=== PATIENT | female | born 1980 | race Two or more races ===

== ENCOUNTER 2019-05-17 07:54 | Inpatient (IN) | payer OTHER ==
[~2019-05-17] VITALS: Ht 162.6 cm; Wt 80.0 kg
[2019-05-17] MEDS ORDERED: OXYTOCIN 30U/ 0.9% NaCL 500ML 500 ML IV PRN ×2 (07:56→23:58)
[2019-05-17] MEDS: D5%-LACTATED RINGERS 1,000 ML IV SCH ×3 (07:56→23:56)
[2019-05-17] MEDS ORDERED: OXYTOCIN 30U/ 0.9% NaCL 500ML 500 ML IV ONE (07:56)
[2019-05-17] MEDS ORDERED: ONDANSETRON 2MG/ML, 2ML IVPush PRN (08:00)
[2019-05-17] MEDS ORDERED: FENTANYL PF 100 MCG/2ML IV PRN (08:00)
[2019-05-17] MEDS ORDERED: FENTANYL PF 100 MCG/2ML IVPush PRN (08:00)
[2019-05-17] MEDS ORDERED: TERBUTALINE 1 MG/ML, 1ML IVPush PRN (08:00)
[2019-05-17] MEDS ORDERED: ALUMINUM/MAG/SIMETHICONE 30 ML UDC PO PRN (08:00)
[2019-05-17] MEDS ORDERED: TERBUTALINE 1 MG/ML, 1ML SQ PRN (08:00)
[2019-05-17] MEDS ORDERED: MISOPROSTOL 25 MCG TABLET ONE ×3 (08:05→17:00)
[2019-05-17] MEDS ORDERED: NEWBORN KIT ONE (08:05)
[2019-05-17] MEDS ORDERED: LIDOCAINE 1%, 20ML ONE (08:05)
[2019-05-17] MEDS ORDERED: OXYTOCIN 30U/ 0.9% NaCL 500ML 500 ML ONE (08:06)
[2019-05-17] MEDS ORDERED: MISOPROSTOL 200 MCG TABLET ONE (08:06)
[2019-05-17 08:07] VITALS: BP 123/66
[2019-05-17] MEDS ORDERED: PENICILLIN GK 5,000,000 UNITS in DEXTROSE 5% 100 ML IVPB ONE (08:30)
[2019-05-17 08:33] LABS: BASOPHILS # (AUTO) 0.08 x10^3/uL (0-0.1); BASOPHILS % (AUTO) 1 % (0-1); EOSINOPHILS % (AUTO) 2 % (1-7); LYMPHOCYTES # (AUTO) 1.42 x10^3/uL (1-3.4); LYMPHOCYTES % (AUTO) 15 % (22-44); MD NO; MEAN CORPUSCULAR HEMOGLOBIN 31.6 pg (27.0-34.8); MEAN CORPUSCULAR HGB CONC 33.4 g/dL (32.4-35.8); MEAN CORPUSCULAR VOLUME 94.7 fL (80-100); MEAN PLATELET VOLUME 8.6 fL (7.4-10.4); MONOCYTES # (AUTO) 0.46 x10^3/uL (0.2-0.8); MONOCYTES % (AUTO) 5 % (2-9); NEUTROPHILS # (AUTO) 7.27 x10^3/uL (1.8-6.8); NEUTROPHILS % (AUTO) 77 % (42-75); PLATELET COUNT 272 x10^3/uL (130-400); RED BLOOD COUNT 4.08 x10^6/uL (3.82-5.3); RED CELL DISTRIBUTION WIDTH 13.2 % (9.6-15.2)
[2019-05-17] MEDS: LACTATED RINGERS 1,000 ML IV SCH ×3 (08:44→23:23)
[2019-05-17] MEDS: MISOPROSTOL 25 MCG TABLET VG PRN ×3 (08:56→17:08)
[2019-05-17] MEDS: PENICILLIN GK 2,500,000 UNITS in DEXTROSE 5% 100 ML IVPB SCH ×3 (12:55→21:22)
[2019-05-17 19:50] VITALS: BP 129/87
[2019-05-18] MEDS ORDERED: FENTANYL/BUPIV./NS/PF 250 ML EPIDCONT SCH ×2 (00:01→06:11)
[2019-05-18] MEDS ORDERED: FENTANYL PF 500 MCG, BUPIVACAINE/PF 0.5%, 30ML 62.5 ML in SODIUM CHLORIDE 0.9% 177.5 ML EPIDCONT SCH (00:30)
[2019-05-18] MEDS ORDERED: BUPIVACAINE 0.25% ONE (00:33)
[2019-05-18] MEDS: PENICILLIN GK 2,500,000 UNITS in DEXTROSE 5% 100 ML IVPB SCH ×2 (01:28→04:52)
[2019-05-18] MEDS: LACTATED RINGERS 1,000 ML IV SCH ×4 (01:29→15:03)
[2019-05-18] MEDS ORDERED: TERBUTALINE 1 MG/ML, 1ML ONE (04:11)
[2019-05-18] MEDS: D5%-LACTATED RINGERS 1,000 ML IV SCH (04:12)
[2019-05-18] MEDS ORDERED: LACTATED RINGERS 1,000 ML INTUTE PRN (04:15)
[2019-05-18] MEDS ORDERED: LACTATED RINGERS 1,000 ML INTUTE SCH (04:30)
[2019-05-18] MEDS ORDERED: SODIUM CITRATE/CITRIC ACID 30 ML UDC ONE (04:37)
[2019-05-18] MEDS ORDERED: METOCLOPRAMIDE 5 MG/ML, 2ML ONE (04:37)
[2019-05-18] MEDS ORDERED: GENTAMICIN 120 MG in SODIUM CHLORIDE 0.9% 100 ML IV STA (05:01)
[2019-05-18] MEDS ORDERED: LACTATED RINGERS 1,000 ML IV SCH ×2 (05:03→06:11)
[2019-05-18] MEDS: OXYTOCIN 30U/ 0.9% NaCL 500ML 500 ML IV SCH ×2 (05:03→15:03)
[2019-05-18] MEDS ORDERED: MEPERIDINE/PF 50 MG/ML IVPush PRN (05:30)
[2019-05-18] MEDS ORDERED: ONDANSETRON 2MG/ML, 2ML IV PRN ×2 (05:30→06:30)
[2019-05-18] MEDS ORDERED: CARBOPROST TROMETHAMINE 250 MCG/ML, 1ML IM PRN (05:30)
[2019-05-18] MEDS ORDERED: METOCLOPRAMIDE 5 MG/ML, 2ML IV PRN (05:30)
[2019-05-18] MEDS ORDERED: morphine SULFATE 10 MG/ML, 1ML IVPush PRN (05:30)
[2019-05-18] MEDS ORDERED: MISOPROSTOL 200 MCG TABLET PR PRN (05:30)
[2019-05-18] MEDS ORDERED: ACETAMINOPHEN 325 MG TABLET PO PRN (05:30)
[2019-05-18] MEDS ORDERED: IBUPROFEN 600 MG TABLET PO PRN (05:30)
[2019-05-18] MEDS ORDERED: METHYLERGONOVINE 0.2 MG/ML IM PRN (05:30)
[2019-05-18] MEDS ORDERED: SODIUM BICARBONATE 1 MEQ/ML, 50ML VIAL ONE (05:32)
[2019-05-18] MEDS ORDERED: OXYTOCIN 10 UNITS/ML, 1ML ONE ×3 (05:32)
[2019-05-18] MEDS ORDERED: LIDOCAINE-MPF 2% ,5ML ONE (05:32)
[2019-05-18] MEDS ORDERED: LABETALOL 5MG/ML, 20ML IV PRN (06:30)
[2019-05-18] MEDS ORDERED: DEXAMETHASONE 4 MG/ML, 1ML IV PRN (06:30)
[2019-05-18] MEDS ORDERED: MORPHINE SULFATE 4 MG/ML, 1ML IVPush PRN (06:30)
[2019-05-18] MEDS ORDERED: DIPHENHYDRAMINE 50 MG/ML, 1ML IVPush PRN ×2 (06:30)
[2019-05-18] MEDS ORDERED: NALOXONE 0.4 MG/ML, 1ML IVPush PRN (06:30)
[2019-05-18] MEDS ORDERED: FENTANYL PF 100 MCG/2ML IV PRN (06:30)
[2019-05-18] MEDS ORDERED: ONDANSETRON 2MG/ML, 2ML IVPush PRN (06:30)
[2019-05-18] MEDS ORDERED: EPHEDRINE 50 MG/ML, 1ML IVPush PRN ×2 (06:30)
[2019-05-18] MEDS ORDERED: PROMETHAZINE 25 MG/ML, 1ML IV PRN (06:30)
[2019-05-18] MEDS ORDERED: LACTATED RINGERS 1,000 ML IVBOLUS PRN (06:30)
[2019-05-18] MEDS ORDERED: OXYcodone 5 MG/5 ML ORAL.SOL UDC PO PRN (06:30)
[2019-05-18] MEDS ORDERED: OXYTOCIN 30U/ 0.9% NaCL 500ML 500 ML ONE (06:49)
[2019-05-18] MEDS ORDERED: OXYcodone/APAP 5/325MG TABLET ONE (06:49)
[2019-05-18] MEDS ORDERED: OXYcodone 5 MG/5 ML ORAL.SOL UDC ONE (06:54)
[2019-05-18 08:25] VITALS: BP 127/77
[2019-05-18] MEDS: PRENATAL VIT/IRON/FA 1 EACH TABLET PO SCH (09:00)
[2019-05-18] MEDS: OXYcodone IR 5MG TABLET PO PRN ×3 (10:39→20:31)
[2019-05-18 12:40] VITALS: BP 105/65
[2019-05-18 14:18] LABS: BASOPHILS # (AUTO) 0.04 x10^3/uL (0-0.1); BASOPHILS % (AUTO) 0 % (0-1); EOSINOPHILS # (AUTO) 0.09 x10^3/uL (0-0.4); EOSINOPHILS % (AUTO) 1 % (1-7); LYMPHOCYTES # (AUTO) 1.26 x10^3/uL (1-3.4); LYMPHOCYTES % (AUTO) 11 % (22-44); MD NO; MEAN CORPUSCULAR HGB CONC 33.2 g/dL (32.4-35.8); MEAN CORPUSCULAR VOLUME 93.4 fL (80-100); MEAN PLATELET VOLUME 9.1 fL (7.4-10.4); MONOCYTES # (AUTO) 0.45 x10^3/uL (0.2-0.8); MONOCYTES % (AUTO) 4 % (2-9); NEUTROPHILS % (AUTO) 85 % (42-75); PLATELET COUNT 250 x10^3/uL (130-400); RED BLOOD COUNT 3.66 x10^6/uL (3.82-5.3); RED CELL DISTRIBUTION WIDTH 13.3 % (9.6-15.2)
[2019-05-18] MEDS: KETOROLAC 30 MG/1 ML IV SCH ×4 (14:25→23:30)
[2019-05-18 16:30] VITALS: BP 110/66
[2019-05-18 19:56] VITALS: BP 114/69
[2019-05-18] MEDS: DOCUSATE 100 MG CAPSULE PO PRN (20:32)
[2019-05-18] MEDS: SIMETHICONE 80 MG CHEW TAB PO PRN (20:54)
[2019-05-19] MEDS: OXYcodone IR 5MG TABLET PO PRN ×2 (00:29→05:54)
[2019-05-19 00:30] VITALS: BP 120/75
[2019-05-19 00:37] LABS: BASOPHILS # (AUTO) 0.03 x10^3/uL (0-0.1); BASOPHILS % (AUTO) 0 % (0-1); EOSINOPHILS # (AUTO) 0.16 x10^3/uL (0-0.4); EOSINOPHILS % (AUTO) 1 % (1-7); LYMPHOCYTES % (AUTO) 13 % (22-44); MD NO; MEAN CORPUSCULAR HEMOGLOBIN 31.4 pg (27.0-34.8); MEAN CORPUSCULAR HGB CONC 32.9 g/dL (32.4-35.8); MEAN CORPUSCULAR VOLUME 95.5 fL (80-100); MEAN PLATELET VOLUME 8.6 fL (7.4-10.4); MONOCYTES % (AUTO) 3 % (2-9); NEUTROPHILS # (AUTO) 9.87 x10^3/uL (1.8-6.8); NEUTROPHILS % (AUTO) 83 % (42-75); PLATELET COUNT 237 x10^3/uL (130-400); RED BLOOD COUNT 3.63 x10^6/uL (3.82-5.3); RED CELL DISTRIBUTION WIDTH 13.4 % (9.6-15.2)
[2019-05-19] MEDS: LACTATED RINGERS 1,000 ML IV SCH ×3 (01:03→21:03)
[2019-05-19] MEDS: OXYTOCIN 30U/ 0.9% NaCL 500ML 500 ML IV SCH ×3 (01:03→21:03)
[2019-05-19] MEDS: KETOROLAC 30 MG/1 ML IV SCH ×4 (02:38→21:15)
[2019-05-19 04:00] VITALS: BP 118/66
[2019-05-19 08:45] VITALS: BP 114/72
[2019-05-19] MEDS: DOCUSATE 100 MG CAPSULE PO PRN ×2 (08:53→21:15)
[2019-05-19] MEDS: PRENATAL VIT/IRON/FA 1 EACH TABLET PO SCH (08:53)
[2019-05-19] MEDS: SIMETHICONE 80 MG CHEW TAB PO PRN (08:54)
[2019-05-19] MEDS: OXYcodone/APAP 5/325MG TABLET PO PRN ×3 (10:00→21:21)
[2019-05-19 20:45] VITALS: BP 123/75
[2019-05-20] MEDS: KETOROLAC 30 MG/1 ML IV SCH (03:23)
[2019-05-20] MEDS: OXYcodone/APAP 5/325MG TABLET PO PRN ×2 (03:23→15:19)
[2019-05-20 07:53] VITALS: BP 113/72
[2019-05-20] MEDS: PRENATAL VIT/IRON/FA 1 EACH TABLET PO SCH (08:46)
[2019-05-20] MEDS: DOCUSATE 100 MG CAPSULE PO PRN (08:46)
[2019-05-20] MEDS: OXYcodone IR 5MG TABLET PO PRN (11:11)
[2019-05-20] MEDS ORDERED: OXYC-302 PO (15:03)
[2019-05-20] MEDS ORDERED: DOCU-131 PO (15:03)
[2019-05-20] MEDS ORDERED: IBUP-1222 PO (15:03)
== END 2019-05-20 17:05 | disposition home or self-care (01) | DRG 787 ==
LOC: LDIP 07:54 → UNDOADMIN 07:54 → 2NW 05-18 07:54
PROVIDERS: ADMIT Obstetrics & Gynecology; ATTEND Obstetrics & Gynecology
PROC: 10D00Z1 Extraction of Products of Conception, Low, Open Approach (ICD-10-PCS; principal; 2019-05-18)
PROC: 10907ZC Drainage of Amniotic Fluid, Therapeutic from Products of Conception, Via Natural or Artificial Opening (ICD-10-PCS; 2019-05-18)
DX: O69.1XX0 Labor and delivery complicated by cord around neck, with compression, not applicable or unspecified (principal); R71.0 Precipitous drop in hematocrit; O76 Abnormality in fetal heart rate and rhythm complicating labor and delivery; O99.824 Streptococcus B carrier state complicating childbirth; Z37.0 Single live birth; Z3A.40 40 weeks gestation of pregnancy
CPT/HCPCS: 36415; J3490; J7121; S0020; 82803; 85025; 86592; 86850; 86900; G0378; J1885; J2540; J3010; J2590; J3105; J7050; J7120